=== PATIENT | male | born 1950 | race Caucasian/White ===

== ENCOUNTER 2018-09-15 11:54 | Inpatient (IN) | payer OTHER ==
[~2018-09-15] VITALS: Ht 190.5 cm; Wt 82.7 kg
[2018-09-15] MEDS ORDERED: MORPHINE SULF INJ 2 MG/ML SYRINGE 1ML IV PRN ×2 (16:45)
[2018-09-15] MEDS ORDERED: HYDROcodone-ACET 10/325MG TAB PO PRN (16:45)
[2018-09-15] MEDS ORDERED: NITROGLYCERIN 0.4 MG SL TAB SL PRN (16:45)
[2018-09-15] MEDS ORDERED: hydrALAZINE HCL 20 MG/ML VL IV PRN (16:45)
[2018-09-15] MEDS: SULFAMETHOX W/TRIMETH(800/160MG) DS TAB PO SCH (21:26)
[2018-09-15] MEDS: TICAGRELOR 90 MG TAB PO SCH (21:28)
[2018-09-15] MEDS: ATORVASTATIN 20 MG TAB PO SCH (21:28)
[2018-09-15] MEDS: METOPROLOL TARTRATE 25 MG TAB PO SCH (21:29)
[2018-09-15 22:00] VITALS: BP 120/71
[2018-09-16 05:00] VITALS: BP 111/68
[2018-09-16 06:12] LABS: Calcium 8.8 mg/dL (8.5-10.1); Potassium 4.4 mmol/L (3.5-5.1)
[2018-09-16 06:13] LABS: Basophils # (auto) 0 uL; Basophils % (auto) 0.5 % (0.0-2.0); Eosinophils # (auto) 0.3 uL; Eosinophils % (auto) 3.6 % (0.0-7.0); Hematocrit 41.5 % (41.0-53.0); Lymphocytes # (auto) 1.6 uL; Lymphocytes % (auto) 22.1 % (10.0-50.0); Mean Corpuscular Hemoglobin 30.2 pg (28.0-32.0); Mean Corpuscular Hgb Conc. 33.8 g/dL (32.0-36.0); Mean Corpuscular Volume 89.3 fL (80.0-100.0); Monocytes # (auto) 0.5 uL; Monocytes % (auto) 7.6 % (0.0-12.0); Neutrophils # (auto) 4.8 uL; Neutrophils % (auto) 66.2 % (37.0-80.0); Nucleated Red Blood Cells % 0.1 %; Platelet Count (auto) 215 10^3/uL (140-450); Red Blood Cells 4.64 10^6/uL (4.5-5.90); Red Cell Distribution Width 13.9 % (11.8-14.3); White Blood Cell 7.2 10^3/uL (4.4-10.8)
[2018-09-16 08:00] VITALS: BP 120/78
[2018-09-16] MEDS: TICAGRELOR 90 MG TAB PO SCH ×2 (10:42→22:08)
[2018-09-16] MEDS: SULFAMETHOX W/TRIMETH(800/160MG) DS TAB PO SCH ×2 (10:42→21:52)
[2018-09-16] MEDS: FAMOTIDINE 20 MG TAB PO SCH (10:42)
[2018-09-16] MEDS: METOPROLOL TARTRATE 25 MG TAB PO SCH ×2 (10:42→21:54)
[2018-09-16] MEDS: ASPirin 81 mg TAB PO SCH (10:43)
[2018-09-16 13:00] VITALS: BP 114/76
[2018-09-16 16:50] VITALS: BP 116/79
[2018-09-16 20:00] VITALS: BP 120/78
[2018-09-16] MEDS: ATORVASTATIN 20 MG TAB PO SCH (21:55)
[2018-09-16 22:00] VITALS: BP 111/73
[2018-09-17 05:00] VITALS: BP 123/65
[2018-09-17 08:53] VITALS: BP 128/79
[2018-09-17] MEDS: SULFAMETHOX W/TRIMETH(800/160MG) DS TAB PO SCH ×2 (10:10→22:00)
[2018-09-17] MEDS: FAMOTIDINE 20 MG TAB PO SCH (10:10)
[2018-09-17] MEDS: TICAGRELOR 90 MG TAB PO SCH ×2 (10:10→23:06)
[2018-09-17] MEDS: ASPirin 81 mg TAB PO SCH (10:10)
[2018-09-17] MEDS: METOPROLOL TARTRATE 25 MG TAB PO SCH ×2 (10:10→22:36)
[2018-09-17 13:00] VITALS: BP 120/71
[2018-09-17 16:53] VITALS: BP 115/74
[2018-09-17 20:00] VITALS: BP 117/78
[2018-09-17 22:00] VITALS: BP 117/78
[2018-09-17] MEDS: ATORVASTATIN 20 MG TAB PO SCH (22:35)
[2018-09-18 05:00] VITALS: BP 116/78
[2018-09-18 05:50] LABS: INR 0.98 (0.9-1.15); Partial Thromboplastin Time 29.4 sec (23.78-33.04); Prothrombin Time 10.5 sec (9.27-12.13)
[2018-09-18] MEDS ORDERED: LIDOCAINE 2%HCL (LOCAL ANESTH.) INJ 20ML MDV ONE (07:12)
[2018-09-18] MEDS ORDERED: IOHEXOL 350 MG/ML 100ML IJ ONE ×2 (07:15→09:06)
[2018-09-18] MEDS ORDERED: ANGIOMAX 250 MG VIAL IV ONE (08:08)
[2018-09-18] MEDS ORDERED: MIDAZOLAM HCL 1MG/1ML-2 ML VIAL ONE (08:09)
[2018-09-18] MEDS ORDERED: fentaNYL CITRATE 100 MCG/2 ML VL ONE (08:09)
[2018-09-18] MEDS ORDERED: SODIUM CHL 0.9% 50 ML ONE (08:09)
[2018-09-18 08:53] VITALS: BP 123/82
[2018-09-18] MEDS ORDERED: IODIXANOL 320MG/ML 100ML BTL IV ONE (09:05)
[2018-09-18] MEDS ORDERED: TICAGRELOR 90 MG TAB ONE (09:32)
[2018-09-18] MEDS ORDERED: ASPirin 81 mg TAB ONE (09:32)
[2018-09-18] MEDS: ASPirin 81 mg TAB PO SCH (09:35)
[2018-09-18] MEDS: TICAGRELOR 90 MG TAB PO SCH ×2 (09:35→22:25)
[2018-09-18 13:00] VITALS: BP 118/79
[2018-09-18] MEDS: SULFAMETHOX W/TRIMETH(800/160MG) DS TAB PO SCH ×2 (13:49→22:26)
[2018-09-18] MEDS: FAMOTIDINE 20 MG TAB PO SCH (13:50)
[2018-09-18] MEDS: METOPROLOL TARTRATE 25 MG TAB PO SCH ×2 (13:50→22:26)
[2018-09-18 16:53] VITALS: BP 113/71
[2018-09-18 22:00] VITALS: BP 117/73
[2018-09-18] MEDS: ATORVASTATIN 20 MG TAB PO SCH (22:26)
[2018-09-19 04:51] VITALS: BP 112/74
[2018-09-19 09:00] VITALS: BP 104/58
[2018-09-19] MEDS: TICAGRELOR 90 MG TAB PO SCH ×2 (10:21→22:16)
[2018-09-19] MEDS: ASPirin 81 mg TAB PO SCH (10:21)
[2018-09-19] MEDS: FAMOTIDINE 20 MG TAB PO SCH (10:21)
[2018-09-19] MEDS: SULFAMETHOX W/TRIMETH(800/160MG) DS TAB PO SCH ×2 (10:21→22:16)
[2018-09-19] MEDS: METOPROLOL TARTRATE 25 MG TAB PO SCH ×2 (10:21→22:16)
[2018-09-19 13:00] VITALS: BP 113/75
[2018-09-19 17:00] VITALS: BP 113/72
[2018-09-19 22:00] VITALS: BP 115/71
[2018-09-19] MEDS: ATORVASTATIN 20 MG TAB PO SCH (22:16)
[2018-09-20 05:08] VITALS: BP 123/73
[2018-09-20 08:00] VITALS: BP 111/74
[2018-09-20 08:30] VITALS: BP 111/67
[2018-09-20] MEDS: ASPirin 81 mg TAB PO SCH (09:42)
[2018-09-20] MEDS: TICAGRELOR 90 MG TAB PO SCH (09:42)
[2018-09-20] MEDS: SULFAMETHOX W/TRIMETH(800/160MG) DS TAB PO SCH ×2 (09:43→23:03)
[2018-09-20] MEDS: FAMOTIDINE 20 MG TAB PO SCH (09:43)
[2018-09-20] MEDS: METOPROLOL TARTRATE 25 MG TAB PO SCH ×2 (09:43→23:03)
[2018-09-20 12:30] VITALS: BP 113/71
[2018-09-20] MEDS ORDERED: CLOPIDOGREL 300 MG TAB PO ONE (13:30)
[2018-09-20 17:30] VITALS: BP 118/75
[2018-09-20 22:00] VITALS: BP 114/66
[2018-09-20] MEDS: ATORVASTATIN 20 MG TAB PO SCH (23:02)
[2018-09-21 05:00] VITALS: BP 116/62
[2018-09-21 08:00] VITALS: BP 111/68
[2018-09-21] MEDS: ASPirin 81 mg TAB PO SCH (10:38)
[2018-09-21] MEDS: SULFAMETHOX W/TRIMETH(800/160MG) DS TAB PO SCH (10:38)
[2018-09-21] MEDS: METOPROLOL TARTRATE 25 MG TAB PO SCH (10:39)
[2018-09-21] MEDS: FAMOTIDINE 20 MG TAB PO SCH (10:39)
[2018-09-21] MEDS ORDERED: CLOP75TA28 PO (12:40)
[2018-09-21] MEDS ORDERED: ASPI81CH43 PO (12:40)
[2018-09-21 13:53] VITALS: BP 118/68
[2018-09-22] MEDS ORDERED: CLOPIDOGREL BISULFATE 75 MG TAB PO SCH (10:00)
== END 2018-09-21 16:00 | DRG 246 ==
LOC: EEVIPCON → TELE-WESTW 16:42
PROVIDERS: ADMIT Internal Medicine; ATTEND Internal Medicine
PROC: 5A2204Z Restoration of Cardiac Rhythm, Single (ICD-10-PCS; 2018-09-16)
PROC: 027035Z Dilation of Coronary Artery, One Artery with Two Drug-eluting Intraluminal Devices, Percutaneous Approach (ICD-10-PCS; principal; 2018-09-18)
PROC: B241ZZ3 Ultrasonography of Multiple Coronary Arteries, Intravascular (ICD-10-PCS; 2018-09-18)
PROC: B41G1ZZ Fluoroscopy of Left Lower Extremity Arteries using Low Osmolar Contrast (ICD-10-PCS; 2018-09-18)
PROC: 4A023N7 Measurement of Cardiac Sampling and Pressure, Left Heart, Percutaneous Approach (ICD-10-PCS; 2018-09-18)
PROC: B2111ZZ Fluoroscopy of Multiple Coronary Arteries using Low Osmolar Contrast (ICD-10-PCS; 2018-09-18)
PROC: B2151ZZ Fluoroscopy of Left Heart using Low Osmolar Contrast (ICD-10-PCS; 2018-09-18)
DX: I21.4 Non-ST elevation (NSTEMI) myocardial infarction (principal); I46.9 Cardiac arrest, cause unspecified; I25.110 Atherosclerotic heart disease of native coronary artery with unstable angina pectoris; S42.002A Fracture of unspecified part of left clavicle, initial encounter for closed fracture; X58.XXXA Exposure to other specified factors, initial encounter; I21.9 Acute myocardial infarction, unspecified; Z95.5 Presence of coronary angioplasty implant and graft; Z86.74 Personal history of sudden cardiac arrest; I25.2 Old myocardial infarction; Z79.02 Long term (current) use of antithrombotics/antiplatelets; Z79.82 Long term (current) use of aspirin; Z82.49 Family history of ischemic heart disease and other diseases of the circulatory system; Y93.89 Activity, other specified; Y92.89 Other specified places as the place of occurrence of the external cause; Y99.8 Other external cause status
CPT/HCPCS: 36415; 71046; 80048; 84484; 85025; 85610; 85730; 86850; 86900; 86901; 87081; A6257; G0378; J2250; Q9967